=== PATIENT | male | born 1960 | race Caucasian/White ===

== ENCOUNTER 2018-04-06 09:09 | Day surgery (SDC) | payer OTHER, BC ==
[2018-04-06] MEDS: CIPROFLOXACIN 400MG/D5W 200 ML IVPB (08:00)
[~2018-04-06 09:09] MED LIST: EPHEDrine SULFATE 50 MG/5 ML SYG
[2018-04-06] MEDS ORDERED: ROCURONIUM 50 MG INJ (11:07)
[2018-04-06] MEDS ORDERED: NEOSTIGMINE 3 MG/3 ML SYRINGE (11:07)
[2018-04-06] MEDS ORDERED: LIDOCAINE 2% (SDV) 5 ML INJ (11:07)
[2018-04-06] MEDS ORDERED: GLYCOPYRROLATE 0.4 MG INJ (11:07)
[2018-04-06] MEDS ORDERED: MIDAZOLAM 1 MG/ML 2 ML INJ ×2 (11:07→12:18)
[2018-04-06] MEDS ORDERED: PROPOFOL 20 ML (11:07)
[2018-04-06] MEDS ORDERED: FENTAnyl 50 MCG/ML VIAL ×3 (11:08→13:39)
[2018-04-06] MEDS ORDERED: DEXAMETHASONE 4 MG/ML 1 ML INJ ×2 (11:08→12:21)
[2018-04-06] MEDS ORDERED: ONDANSETRON 4 MG INJ ×2 (11:11→12:18)
[2018-04-06] MEDS ORDERED: SUCCINYLCHOLINE CHLORIDE 100 MG/5 ML SYG IV (11:13)
[2018-04-06] MEDS ORDERED: CEFAZOLIN 1 GM INJ ×2 (11:13)
[2018-04-06] MEDS ORDERED: PROPOFOL 40 ML (12:17)
[2018-04-06] MEDS ORDERED: FAMOTIDINE 20 MG INJ (12:21)
[2018-04-06] MEDS ORDERED: morphine (1 MG/ML) 10ML SYRINGE IV ×2 (12:30)
[2018-04-06] MEDS ORDERED: HYDROmorphONE 1 MG/5 ML IV SYRINGE IV (12:30)
[2018-04-06] MEDS ORDERED: OXYCODONE/ACETAMINOPHEN (5/325) TAB PO (12:30)
[2018-04-06] MEDS ORDERED: DIPHENHYDRAMINE 50 MG INJ IV (12:30)
[2018-04-06] MEDS ORDERED: ALBUTEROL 0.083% (NEB) 2.5 MG/3 ML AMP HHN (12:30)
[2018-04-06] MEDS ORDERED: FENTAnyl 50 MCG/ML VIAL IV ×2 (12:30)
[2018-04-06] MEDS ORDERED: LABETALOL HCL 20MG INJ IV (12:30)
[2018-04-06] MEDS: IOHEXOL 300MG/ML 30 ML BTL (13:18)
[2018-04-06] MEDS: HYDROmorphONE 1 MG/5 ML IV SYRINGE IV ×2 (14:25→14:45)
[2018-04-06] MEDS: ONDANSETRON 4 MG INJ IV (14:26)
[2018-04-06] MEDS: MEPERIDINE 25 MG INJ IV (14:26)
[2018-04-06] MEDS: OXYCODONE/ACETAMINOPHEN (5/325) TAB PO (15:27)
== END 2018-04-06 16:18 | disposition home or self-care (01) ==
LOC: SDS 09:09
DX: N35.819 Other urethral stricture, male, unspecified site (principal); N32.9 Bladder disorder, unspecified
CPT/HCPCS: 52275; 74430; 87086; 88305